=== PATIENT | male | born 1945 | race Caucasian/White ===

== ENCOUNTER 2017-01-05 09:19 | Observation (INO) | payer BC, MEDICARE ==
[2017-01-05] MEDS ORDERED: PANTOPRAZOLE 40 MG/10 ML VIAL IVP STA (09:30)
[2017-01-05] MEDS ORDERED: SODIUM CHLORIDE 0.9% 1,000 ML IV STA (09:30)
[2017-01-05 10:14] LABS: CH 46.1; CHCM 36.3; HCT 37.8 % (39.0-53.0); HDW 3.51; HGB 13.4 gm/dL (13.0-17.5); MCHC 35.5 g/dL (31.0-37.0); MCV 127.9 fL (80.0-100.0); Macrocytosis Marked; Mean Platelet Volume 8.2; Poikilocytosis Slight; RBC 2.96 m/uL (4.30-5.90); RDW 13.5 % (11.5-15.5); WBC 3.6 k/uL (3.8-10.6)
[2017-01-05 10:17] LABS: MCH 45.4 pg (25.0-35.0)
[2017-01-05 10:20] LABS: ALT 37 U/L (21-72); AST 22 U/L (17-59); Alkaline Phosphatase 72 U/L (38-126); Anion Gap 10 mmol/L; Blood Urea Nitrogen 16 mg/dL (9-20); Calcium 8.8 mg/dL (8.4-10.2); Carbon Dioxide 27 mmol/L (22-30); Chloride 105 mmol/L (98-107); Glucose 88 mg/dL (74-99); Magnesium 2.2 mg/dL (1.6-2.3); Non-African American GFR(MDRD) >60 (>60 ml/min/1.73 sqM); Potassium 4.3 mmol/L (3.5-5.1); Sodium 142 mmol/L (137-145); Total Protein 6.8 g/dL (6.3-8.2)
[2017-01-05 10:22] LABS: INR 1.1 (<1.2); Partial Thromboplastin Time 25.2 sec (22.0-30.0)
[2017-01-05 10:35] LABS: Add Differential Manual Differential
[2017-01-05 10:36] LABS: Nucleated Red Blood Cells 0 /100 WBC (0-0); Total Cells Counted 100
[2017-01-05 10:37] LABS: Creatine Kinase 160 U/L (55-170)
[2017-01-05 10:50] LABS: Creatine Kinase MB 1.1 ng/mL (0.0-2.4); Troponin I <0.012 ng/mL (0.000-0.034)
--- NOTE | 2017-01-05 11:07 | ED ---
General Adult HPI - General Chief complaint: GI Bleed Stated complaint: bloody stools Time Seen by Provider: 01/05/17 09:29 Source: patient, RN notes reviewed, old records reviewed Mode of arrival: ambulatory Limitations: no limitations - History of Present Illness Initial comments: This is a 71-year-old male the ER for evaluation. This patient presents today for evaluation regards to bloody stools. Patient does have history of GI issues. Patient is recently had colonoscopy by Dr. Lobato and was told that he does have areas of bleeding and to return to the hospital if bleeding worsens. Patient has no bowel pain does not feel lightheaded or dizzy, is not on any blood thinners, and did take an aspirin which she has stopped. - Related Data Home Medications Medication Instructions Recorded Confirmed Aspirin 325 mg PO DAILY 12/17/14 01/05/17 Atorvastatin [Lipitor] 40 mg PO HS 12/17/14 01/05/17 Hydroxyurea [Hydrea] 500 mg PO BID 12/17/14 01/05/17 Ramipril 10 mg PO DAILY 12/17/14 01/05/17 Spironolactone [Aldactone] 25 mg PO DAILY 12/07/15 01/05/17 Carvedilol [Coreg*] 12.5 mg PO BID 01/05/17 01/05/17 Allergies Allergy/AdvReac Type Severity Reaction Status Date / Time No Known Allergies Allergy Verified 01/05/17 09:47 Review of Systems ROS Statement: Those systems with pertinent positive or pertinent negative responses have been documented in the HPI. ROS Other: All systems not noted in ROS Statement are negative. Past Medical History Past Medical History: Cancer, Myocardial Infarction ([place]) Additional Past Medical History / Comment(s): 2 stents prostate ca polycythemia History of Any Multi-Drug Resistant Organisms: None Reported Past Surgical History: Heart Catheterization, Heart Catheterization With Stent, Prostate Surgery Past Psychological History: No Psychological Hx Reported Smoking Status: Former smoker Past Alcohol Use History: None Reported Past Drug Use History: None Reported General Exam Limitations: no limitations General appearance: alert, in no apparent distress Head exam: Present: atraumatic, normocephalic, normal inspection Eye exam: Present: normal appearance, PERRL, EOMI. Absent: scleral icterus, conjunctival injection, periorbital swelling ENT exam: Present: normal exam, mucous membranes moist Neck exam: Present: normal inspection. Absent: tenderness, meningismus, lymphadenopathy Respiratory exam: Present: normal lung sounds bilaterally. Absent: respiratory distress, wheezes, rales, rhonchi, stridor Cardiovascular Exam: Present: regular rate, normal rhythm, normal heart sounds. Absent: systolic murmur, diastolic murmur, rubs, gallop, clicks GI/Abdominal exam: Present: soft, normal bowel sounds. Absent: distended, tenderness, guarding, rebound, rigid Extremities exam: Present: normal inspection, full ROM, normal capillary refill. Absent: tenderness, pedal edema, joint swelling, calf tenderness Back exam: Present: normal inspection Neurological exam: Present: alert, oriented X3, CN II-XII intact Psychiatric exam: Present: normal affect, normal mood Skin exam: Present: warm, dry, intact, normal color. Absent: rash Course Vital Signs 01/05/17 09:23 Temperature 98.1 F Pulse Rate 74 Respiratory 20 Rate Blood Pressure 132/77 O2 Sat by Pulse 98 Oximetry - Reevaluation(s) Reevaluation #1: 01/05/17 11:06 Medical record is reviewed Reevaluation #2: 01/05/17 11:06 Spoke with GI regarding patient, they are aware Medical Decision Making - Medical Decision Making 71 male to the ER for evaluation GI bleed, increased GI bleeding since recent colonoscopy. No significant symptoms know how low blood pressure patient will be admitted for GI evaluation and treatment - Lab Data Result diagrams: 01/05/17 09:50 01/05/17 09:50 Lab Results 01/05/17 01/05/17 01/05/17 Range/Units 09:50 09:50 09:50 WBC 3.6 L (3.8-10.6) k/uL RBC 2.96 L (4.30-5.90) m/uL Hgb 13.4 (13.0-17.5) gm/dL Hct 37.8 L (39.0-53.0) % MCV 127.9 H (80.0-100.0) fL MCH 45.4 H (25.0-35.0) pg MCHC 35.5 (31.0-37.0) g/dL RDW 13.5 (11.5-15.5) % Plt Count 181 (150-450) k/uL Neutrophils % (Manual) 96 % Lymphocytes % (Manual) 3 % Monocytes % (Manual) 1 % Neutrophils # (Manual) 3.46 (1.3-7.7) k/uL Lymphocytes # (Manual) 0.11 L (1.0-4.8) k/uL Monocytes # (Manual) 0.04 (0-1.0) k/uL Nucleated RBCs 0 (0-0) /100 WBC Poikilocytosis Slight Anisocytosis (manual) Present Macrocytosis Marked PT (9.0-12.0) sec INR (<1.2) APTT (22.0-30.0) sec Sodium 142 (137-145) mmol/L Potassium 4.3 (3.5-5.1) mmol/L Chloride 105 (98-107) mmol/L Carbon Dioxide 27 (22-30) mmol/L Anion Gap 10 mmol/L BUN 16 (9-20) mg/dL Creatinine 0.99 (0.66-1.25) mg/dL Est GFR (MDRD) Af Amer >60 (>60 ml/min/1.73 sqM) Est GFR (MDRD) Non-Af >60 (>60 ml/min/1.73 sqM) Glucose 88 (74-99) mg/dL Calcium 8.8 (8.4-10.2) mg/dL Magnesium 2.2 (1.6-2.3) mg/dL Total Bilirubin 1.0 (0.2-1.3) mg/dL AST 22 (17-59) U/L ALT 37 (21-72) U/L Alkaline Phosphatase 72 (38-126) U/L Total Creatine Kinase 160 (55-170) U/L CK-MB (CK-2) 1.1 (0.0-2.4) ng/mL CK-MB (CK-2) Rel Index 0.7 Troponin I <0.012 (0.000-0.034) ng/mL Total Protein 6.8 (6.3-8.2) g/dL Albumin 4.1 (3.5-5.0) g/dL Lipase 56 (23-300) U/L Blood Type Blood Type Recheck Antibody Screen Spec Expiration Date 01/05/17 01/05/17 Range/Units 09:50 09:50 WBC (3.8-10.6) k/uL RBC (4.30-5.90) m/uL Hgb (13.0-17.5) gm/dL Hct (39.0-53.0) % MCV (80.0-100.0) fL MCH (25.0-35.0) pg MCHC (31.0-37.0) g/dL RDW (11.5-15.5) % Plt Count (150-450) k/uL Neutrophils % (Manual) % Lymphocytes % (Manual) % Monocytes % (Manual) % Neutrophils # (Manual) (1.3-7.7) k/uL Lymphocytes # (Manual) (1.0-4.8) k/uL Monocytes # (Manual) (0-1.0) k/uL Nucleated RBCs (0-0) /100 WBC Poikilocytosis Anisocytosis (manual) Macrocytosis PT 11.0 (9.0-12.0) sec INR 1.1 (<1.2) APTT 25.2 (22.0-30.0) sec Sodium (137-145) mmol/L Potassium (3.5-5.1) mmol/L Chloride (98-107) mmol/L Carbon Dioxide (22-30) mmol/L Anion Gap mmol/L BUN (9-20) mg/dL Creatinine (0.66-1.25) mg/dL Est GFR (MDRD) Af Amer (>60 ml/min/1.73 sqM) Est GFR (MDRD) Non-Af (>60 ml/min/1.73 sqM) Glucose (74-99) mg/dL Calcium (8.4-10.2) mg/dL Magnesium (1.6-2.3) mg/dL Total Bilirubin (0.2-1.3) mg/dL AST (17-59) U/L ALT (21-72) U/L Alkaline Phosphatase (38-126) U/L Total Creatine Kinase (55-170) U/L CK-MB (CK-2) (0.0-2.4) ng/mL CK-MB (CK-2) Rel Index Troponin I (0.000-0.034) ng/mL Total Protein (6.3-8.2) g/dL Albumin (3.5-5.0) g/dL Lipase (23-300) U/L Blood Type A Positive Blood Type Recheck CABO Indicated Antibody Screen NEGATIVE Spec Expiration Date 01/08/20172349 Disposition Clinical Impression: Gastrointestinal hemorrhage Disposition: ADMITTED IP TO THIS HOSP Condition: Fair Instructions: Gastrointestinal Bleeding (ED) Referrals: Bijan Long MD [Primary Care Provider] - 1-2 days
[2017-01-05] MEDS ORDERED: SODIUM CHLORIDE 0.9% 1,000 ML IV ONE (11:37)
[2017-01-05 14:32] VITALS: RESP 18
[2017-01-05] MEDS: CARVEDILOL 3.125 MG TAB PO SCH (16:59)
[2017-01-05] MEDS: HYDROXYUREA 500 MG CAP PO SCH (20:06)
[2017-01-05] MEDS ORDERED: ATORVASTATIN 40 MG TAB PO SCH (21:00)
[2017-01-06] MEDS ORDERED: SODIUM CHLORIDE 0.9% 1,000 ML IV SCH (07:00)
[2017-01-06] MEDS: HYDROXYUREA 500 MG CAP PO SCH (08:06)
[2017-01-06] MEDS: CARVEDILOL 3.125 MG TAB PO SCH (08:06)
[2017-01-06 08:20] VITALS: BP 109/64; PULSE 79; TEMP 97.7
[2017-01-06] MEDS ORDERED: SPIRONOLACTONE 25 MG TAB PO SCH (09:00)
[2017-01-06] MEDS ORDERED: LISINOPRIL 20 MG TAB PO SCH (09:00)
--- NOTE | 2017-01-06 09:12 | P.CONS ---
History of Present Illness - Reason for Consult Consult date: 01/06/17 rectal bleeding Requesting physician: Bijan Long - History of Present Illness 71-year-old gentleman with a history of polycythemia, prostate carcinoma requiring radiation 2 years ago presents with rectal bleeding. Patient underwent colonoscopy screening December [address] Lobato at [facility] with biopsies consistent with radiation proctitis; colonoscopy report not available at time of dictation. Post-colonoscopy patient experienced no bleeding until yesterday when he passed 3 bright red bowel movements with minimal abdominal discomfort. Denies shortness of breath chest pain fever chills hematemesis or melena. No NSAIDs aspirin or antiplatelet medications. No alcoholism. Hemoglobin 13.4. Platelet 181. INR 1.1. BUN 16. Last bloody bowel movement yesterday morning around 8 AM. Presently resting comfortably. Denies abdominal pain. Review of Systems Constitutional: Denies fever, chills, sweats, weight gain, or loss. HEENT: Negative for migraines, blurred vision or loss, earaches, drainage, tinnitus, oral mucosal lesions, dysphagia, or odynophagia. Cardiac: Negative for chest pain, arrhythmias, or palpitation. Respiratory: Negative for shortness of breath, hemoptysis, cough, or sputum production. Gastrointestinal: See HPI for pertinent findings. Genitourinary: Prostate carcinoma with radiation. Negative for hematuria, urgency, frequency, polyuria, dysuria, or penile discharge. Musculoskeletal: Negative for muscle aches, swelling, arthritis, and arthralgias. Neurologic: Negative for stroke or TIA. Endocrine: Negative for thyroid problems. Hematologic: Polycythemia. Skin: Negative for rash or itching. Psychiatric: Negative history for depression and anxiety All systems: negative (See HPI) Past Medical History Past Medical History: Cancer, Hyperlipidemia, Hypertension, Myocardial Infarction ([place]), Pneumonia, Skin Disorder Additional Past Medical History / Comment(s): Prostate cancer treated with 42 external radiation tx about 2 yrs ago-was told there was some damage to the rectal area r/t radiation tx, polycythemia, rosacia Last Myocardial Infarction Date:: 2008 History of Any Multi-Drug Resistant Organisms: None Reported Past Surgical History: Heart Catheterization, Heart Catheterization With Stent, Prostate Surgery Additional Past Surgical History / Comment(s): 12/07/16 Colonoscopy Past Anesthesia/Blood Transfusion Reactions: No Reported Reaction Date of Last Stent Placement:: 2008 Smoking Status: Former smoker - Past Family History Mother Family Medical History: Coronary Artery Disease (CAD), Myocardial Infarction ([place] ) Additional Family Medical History / Comment(s): Mother of a SD at the age of 57yrs Father Family Medical History: Coronary Artery Disease (CAD), Myocardial Infarction ([place] ) Additional Family Medical History / Comment(s): Father of a SD in his 70's. Medications and Allergies Home Medications Medication Instructions Recorded Confirmed Type Aspirin 325 mg PO DAILY 12/17/14 01/05/17 History Atorvastatin [Lipitor] 40 mg PO HS 12/17/14 01/05/17 History Hydroxyurea [Hydrea] 500 mg PO BID 12/17/14 01/05/17 History Ramipril 10 mg PO DAILY 12/17/14 01/05/17 History Spironolactone [Aldactone] 25 mg PO DAILY 12/07/15 01/05/17 History Carvedilol [Coreg*] 3.125 mg PO BID 01/05/17 01/05/17 History Allergies Allergy/AdvReac Type Severity Reaction Status Date / Time No Known Allergies Allergy Verified 01/05/17 09:47 Physical Exam Vitals: Vital Signs Temp Pulse Pulse Resp BP BP Pulse Ox 01/06/17 08:28 18 01/06/17 08:19 97.7 F 79 18 109/64 01/05/17 23:00 97.3 F L 67 18 98/65 98 01/05/17 14:31 96.9 F L 65 18 125/73 98 01/05/17 12:36 97.2 F L 88 17 135/79 100 01/05/17 11:30 60 16 109/69 97 01/05/17 09:23 98.1 F 74 20 132/77 98 Intake and Output 01/05/17 01/06/17 01/06/17 22:59 06:59 14:59 Other: Voiding Method Toilet # Voids 1 1 General appearance: The patient is alert, oriented, in no acute distress. HET: Head is normocephalic and atraumatic. Pupils are equal and reactive. Oropharynx is clear without lesions. Neck: Supple without lymphadenopathy. Trachea midline. Heart: S1 S2. Regular rate and rhythm. Lungs: No crackles or wheezes are heard. Abdomen: Soft, nontender, nondistended with bowel sounds. No peritoneal signs. No palpable organomegaly or masses. Extremities: Normal skin color and turgor. No cyanosis, rash, ulceration, clubbing, or edema. Radial and pedal pulses are 2/4 bilaterally. Neurological: No focal deficits. Strength and sensation are grossly intact. Results CBC & Chem 7: 01/05/17 09:50 01/05/17 09:50 Labs: Abnormal Lab Results - Last 24 Hours (Table) 01/05/17 Range/Units 09:50 WBC 3.6 L (3.8-10.6) k/uL RBC 2.96 L (4.30-5.90) m/uL Hct 37.8 L (39.0-53.0) % MCV 127.9 H (80.0-100.0) fL MCH 45.4 H (25.0-35.0) pg Lymphocytes # (Manual) 0.11 L (1.0-4.8) k/uL Assessment and Plan (1) Rectal bleeding Narrative/Plan: 71-year-old gentleman presents with acute rectal bleeding 3 episode with a history of prostate carcinoma requiring radiation with colonoscopy screening one month ago with biopsies consistent with radiation proctitis. Rectal bleeding most likely result of radiation proctitis. Status: Acute (2) Radiation proctitis Status: Acute Plan: 1. No further episodes of rectal bleeding more than 24 hours. Patient resting comfortably. Recommend discharge today with scheduling of flexible sigmoidoscopy possible APC tomorrow with Dr. Burger at [facility]. Patient is agreeable with this plan of care. Prescriptions/bowel prep provided. The highway painter has discussed the risks, benefits and alternative therapies for the above-mentioned procedure and for both sedation/analgesia as well as necessary blood product administration, if indicated, as they pertain to this patient. The patient has indicated understanding and acceptance of the risks and procedures discussed. Thank you for this kind referral and the opportunity to participate in the care of your patient. This consultation was discussed with Dr. Burger. The impression and plan of care have been directed as dictated.
--- NOTE | 2017-01-06 09:42 | HP ---
HISTORY AND PHYSICAL DATE OF ADMISSION: 01/05/17. ATTENDING PHYSICIAN: Dr. Che Long. CHIEF COMPLAINT: Rectal bleeding. HISTORY OF PRESENT ILLNESS: This is a 71-year-old gentleman who last Wednesday had an episode of lower GI bleeding. It was fresh blood. The patient had actually been scheduled for a routine screening colonoscopy on 12/28/16. He did undergo a colonoscopy as outpatient by Dr. Lobato. He has noted to have evidence of proctitis. He has had previous radiation therapy for carcinoma of the prostate and this was felt to be more of radiation proctitis. The patient did not have any particular treatment done for that because of unavailability of the facility. The patient presents to the emergency room with increased bleeding today. He got up in the morning, had a good bowel movement at 7 o'clock. It was normal. Subsequent then about half hour later, he felt the urgency to defecate again. At this time, he had a significant amount of bleeding. No stool. Denied any abdominal pain. Denies any other symptoms of fever, chills, nausea, vomiting, and dizziness, palpitations, chest pain. The patient presented in the emergency room in view of this. He is evaluated, hemodynamically stable, in no distress. He is admitted for observation. His hemoglobin is stable. The patient on digital exam by me had no stool in his rectum. There was no blood. The patient is to be evaluated by the endoscopist/home stager Dr. Lobato later today. PAST MEDICAL HISTORY: Primarily significant for history of carcinoma of the prostate for which he had radiation therapy. History of polycythemia rubra vera on medical therapy for the same. History of coronary artery disease with a previous stent in 2011. History of hyperlipidemia, on medical therapy. PAST SURGICAL HISTORY: Significant for prostate biopsy. No other emergent surgeries. PERSONAL HISTORY: Ex-smoker. Alcohol none. ALLERGIES: None reported. MEDICATIONS: 1. Coreg 6.25 mg b.i.d. 2. Atorvastatin 40 mg daily. 3. Aspirin 325 mg daily., which is on hold. 4. Spironolactone 25 mg 1 daily. 5. Omeprazole 10 mg daily. 6. Hydrea 500 mg b.i.d. SOCIAL HISTORY: Patient is , lives with his spouse. FAMILY MEDICAL HISTORY: Father at age of 72, coronary artery disease. Mother at age 52 of coronary artery disease. The patient has 5 brothers, 1 has a history of alcohol dependence. A sister . She has a history of carcinoma of breast. Two other sisters in adequate health. The patient has 1 daughter and 1 son in good health. REVIEW OF SYSTEMS: Neuro: Denies any headaches, dizziness. No double vision, blurred vision. No symptoms of TIAs, syncope, or seizures. Psych: No anxiety, depression. Cardiac: No chest pain, angina, palpitations. Respiratory: Denies shortness of breath, cough, hemoptysis. GI: No nausea, vomiting, abdominal pain, diarrhea, constipation. Present symptoms of rectal bleeding. : No symptoms of dysuria, hematuria, urgency, or frequency. EXTREMITIES: No pain or edema. Constitutional: No fever, chills. Hematological: Present GI bleeding. Otherwise, no bleeding disorder. : No symptoms of dysuria, hematuria, urgency, frequency. EXTREMITIES: No pain or edema. Constitutional: No fever, chills. Hematological: History of polycythemia rubra vera, on medical therapy. Well-controlled. PHYSICAL EXAMINATION: Pleasant gentleman, at present in no distress. Vital signs reveals temperature 96.9, pulse 65, respirations 18, blood pressure 125/73, pulse ox 98% on room air. HEENT: Normocephalic. NECK: Supple. No JVD. CHEST: Clear. The patient pupils are reactive. Conjunctivae are pink. Sclerae are nonicteric. Nostrils clear. Oral cavity is moist. Neck is no JVD. Carotid bruits, or thyromegaly. CHEST: Clear to auscultation, percussion. Cardiac normal S1, S2 with no gallops, murmurs, rubs. ABDOMEN: Soft, bowel sounds normal. No organomegaly. No abdominal bruits. Rectal examination reveals small prostate. Soft. The rectum with no tenderness. No blood in the stool and no blood in the rectum. EXTREMITIES: No edema. Good pulses both upper and lower extremities. Neurologic is awake, alert, oriented times with well coordinated movements. LABORATORY ASSESSMENT: CBC which revealed hemoglobin 13.4, white count of 3600, MCV 127.9, platelets 181,000. PT, PTT, and normal. Chemistries all normal. ASSESSMENT: 1. Radiation proctitis with lower gastrointestinal bleeding. 2. History of carcinoma of the prostate, post radiation therapy. 3. History of polycythemia rubra vera. 4. History of coronary artery disease, stable. PLAN: The patient is admitted to the hospital for observation. The patient will be seen by Gastroenterology for possible further treatment. Patient condition discussed with the patient. Prognosis guarded. MMLGL / CHRISTON: [id number] /
[2017-01-06 10:23] LABS: CH 44.5; CHCM 34.2; HDW 3.41; HGB 12.9 gm/dL (13.0-17.5); MCHC 34.9 g/dL (31.0-37.0); Macrocytosis Marked; Mean Platelet Volume 8.2; Poikilocytosis Slight; RBC 2.83 m/uL (4.30-5.90); RDW 13.5 % (11.5-15.5); WBC 3.8 k/uL (3.8-10.6)
[2017-01-06 10:31] LABS: MCH 45.7 pg (25.0-35.0)
[2017-01-06 10:34] LABS: MCV 130.9 fL (80.0-100.0)
--- NOTE | 2017-01-06 23:45 | DS ---
DISCHARGE SUMMARY DATE OF ADMISSION: 01/05/2017 DATE OF DISCHARGE: 01/06/2017 CHIEF COMPLAINT: Rectal bleeding. HISTORY OF PRESENT ILLNESS: This gentleman, 71 years of age, was admitted to the hospital for lower GI bleeding. He had significant blood loss at home. The patient's hemoglobin was 13.4 at the time of admission, then it was down to 12.9. White count was 3800, platelets 177. The patient does have a history of polycythemia rubra vera. He also has had a history of carcinoma of the prostate, for which he had radiation. The patient underwent routine colonoscopy 3 days ago; was noted to have evidence of proctitis, felt to be radiation proctitis. The patient was recommended further intervention. The patient in view of this bleeding presented to the emergency room. The ER physician contacted the GI physician covering the hospital emergency room. He advised that the patient be admitted to the hospital and that he would see the patient in the hospital. The patient at this time of discharge in the morning had not been seen by him. The physician's nurse practitioner was contacted, who discussed the case with him and it was elected that the patient would be discharged home, to come back in the morning for sigmoidoscopic evaluation, as the physician did not have time to do this procedure. The patient has had no further episodes of bleeding. He has been on clear liquids until yesterday and has not had anything to eat since midnight. The patient in view of above will be discharged home. The patient is being scheduled for flexible sigmoidoscopy and possible argon laser therapy/APC. The patient will be discharged home to continue his medications except for the aspirin. FINAL DIAGNOSES: 1. Lower gastrointestinal bleeding secondary to radiation proctitis. 2. History of radiation therapy for carcinoma of the prostate. 3. History of polycythemia rubra vera. 4. History of stable coronary artery disease. 5. Mild anemia secondary to acute blood loss. Patient to follow up with Dr. Long as an outpatient. MMODL / IJN: [id number] /
== END 2017-01-06 10:35 | disposition home or self-care (01) ==
LOC: EC 09:19 → 4MS4W 11:37
PROVIDERS: ADMIT Internal Medicine; ATTEND Internal Medicine
DX: K62.7 Radiation proctitis (principal); Z92.3 Personal history of irradiation; Z85.46 Personal history of malignant neoplasm of prostate; D45 Polycythemia vera; I25.10 Atherosclerotic heart disease of native coronary artery without angina pectoris; D62 Acute posthemorrhagic anemia; Z79.82 Long term (current) use of aspirin; Z79.899 Other long term (current) drug therapy; I25.2 Old myocardial infarction; Z87.891 Personal history of nicotine dependence; Z95.5 Presence of coronary angioplasty implant and graft; E78.5 Hyperlipidemia, unspecified; I10 Essential (primary) hypertension; L71.9 Rosacea, unspecified
CPT/HCPCS: 99285; 96374; 96361 ×6; 36415; 86900; 86901; 80053; 82550; 82553; 83690; 83735; 84484; 85025; 85027; 85610; 85730; 86850; G0378 ×2; S0176 ×2; C9113

== ENCOUNTER 2017-01-07 12:50 | Day surgery (SDC) | payer BC ==
[2017-01-06 13:03] VITALS: BMI 25.7
[2017-01-07 13:02] VITALS: RESP 18; TEMP 97.4
[2017-01-07] MEDS ORDERED: LACTATED RINGERS 1,000 ML IV ONE (13:03)
[2017-01-07] MEDS ORDERED: LIDOCAINE 1% 20 ML VIAL (10MG/ML) FOR IV START INTRADERMA ONE (13:04)
[2017-01-07] MEDS ORDERED: PROPOFOL 10 MG/ML 20 ML VIAL IV ONE (13:43)
[2017-01-07 14:44] VITALS: BP 125/77; PULSE 69
--- NOTE | 2017-01-07 14:48 | P.PCN ---
Date of Procedure: 01/07/17 Procedure(s) Performed: Procedure: Flexible sigmoidoscopy and argon plasma with argon plasma coagulation. Preoperative diagnosis: Rectal bleeding and history of radiation proctitis. Postoperative diagnosis: Bleeding ectatic vessels in the rectum treated with argon plasma coagulation with good control. Preparation: HalfLytely prep. Sedation: Was provided by anesthesia. Brief clinical history: The patient is a 71-year-old male with a history of polycythemia, prostate carcinoma requiring radiation 2 years ago hospitalized overnight this week when he presented with rectal bleeding. Patient underwent colonoscopy screening December [address] Lobato at [facility] with biopsies consistent with radiation proctitis. Post-colonoscopy patient experienced no bleeding until this week when he passed 3 bright red bowel movements with minimal abdominal discomfort. Denied shortness of breath, chest pain, fever, chills, hematemesis or melena. No NSAIDs aspirin or antiplatelet medications. No alcoholism. Hemoglobin 13.4. Platelet 181. INR 1.1. BUN 16. Last bloody bowel movement the morning of the day of admission to the hospital this week. Did not have any further bleeding during his preparation for this exam overnight at home. Procedure: With the patient on his left lateral decubitus position and after informed consent and adequate sedation, the perianal area was inspected and it did not show any fissures or fistulas. There were no masses felt on digital rectal examination, however, there was fresh blood noted on the gloved examining finger. The Olympus CFQ 160L video colonoscope was then inserted in the rectum in the usual fashion and advanced to the mid to proximal sigmoid. There was active bleeding noted in the rectum secondary to ectatic and telangiectatic vessels consistent with radiation proctitis. No abnormalities or bleeding was noted proximal to the rectum. I therefore proceeded to use the argon plasma at 40 W power and a forward firing catheter and treated the areas of bleeding thoroughly with good control of the bleeding.. The patient tolerated the procedure well. Plan: I summarized the findings to the patient. I anticipate control of the bleeding with this treatment today. Certainly, if he has recurrence of the bleeding, I would consider another session of coagulation until complete control and of the problem. He will follow up with you as planned and I will keep you updated on his progress.
== END 2017-01-07 15:13 | disposition home or self-care (01) ==
LOC: ORWHC2ENDO 12:50
DX: K62.5 Hemorrhage of anus and rectum (principal); I25.10 Atherosclerotic heart disease of native coronary artery without angina pectoris; D75.1 Secondary polycythemia; I10 Essential (primary) hypertension; E78.5 Hyperlipidemia, unspecified; Z85.46 Personal history of malignant neoplasm of prostate; I25.2 Old myocardial infarction; Z79.82 Long term (current) use of aspirin; Z79.899 Other long term (current) drug therapy
CPT/HCPCS: 45334; J2704

== ENCOUNTER 2018-03-08 06:50 | Day surgery (SDC) | payer BC, MEDICARE ==
[2018-03-03 13:20] VITALS: BMI 25.8
[~2018-03-08 06:50] MED LIST: ALPRAZolam 0.25 MG TAB PO PRN; ALPRAZolam 0.5 MG TAB PO PRN; NITROGLYCERIN SL TABS 0.4 MG TAB SUBLINGUAL PRN; SODIUM CHLORIDE 0.9% 1,000 ML in EMPTY BAG 1 BAG IV ONE
[2018-03-08] MEDS ORDERED: ATORVASTATIN 80 MG TAB PO ONE (07:00)
[2018-03-08] MEDS ORDERED: ASPIRIN 325 MG TAB PO ONE (07:00)
[2018-03-08 07:33] VITALS: RESP 16; TEMP 98
[2018-03-08 07:43] LABS: Basophils # (A) 0.1 k/uL (0-0.2); Basophils % (A) 1 %; Eosinophils # (A) 0.1 k/uL (0-0.7); Eosinophils % (A) 2 %; HCT 41.8 % (39.0-53.0); HGB 13.7 gm/dL (13.0-17.5); Hypochromasia Slight; Lymphocytes # (A) 0.6 k/uL (1.0-4.8); Lymphocytes % (A) 8 %; MCH 34.3 pg (25.0-35.0); MCHC 32.8 g/dL (31.0-37.0); MCV 104.8 fL (80.0-100.0); Macrocytosis Moderate; Mean Platelet Volume 8.3; Monocytes # (A) 0.3 k/uL (0-1.0); Monocytes % (A) 3 %; Neutrophils # (A) 6.7 k/uL (1.3-7.7); Neutrophils % (A) 86 %; Platelet Count 201 k/uL (150-450); Poikilocytosis Slight; RBC 3.99 m/uL (4.30-5.90); RDW 14.7 % (11.5-15.5); WBC 7.8 k/uL (3.8-10.6)
[2018-03-08] MEDS ORDERED: SODIUM CHLORIDE 0.9% 1,000 ML IV ONE (07:47)
[2018-03-08] MEDS ORDERED: LIDOCAINE 1% INJ 10MG/ML (20 ML MDV) ONE (09:04)
[2018-03-08] MEDS ORDERED: MIDAZOLAM 2 MG/2 ML VIAL ONE (09:04)
[2018-03-08] MEDS ORDERED: MIDAZOLAM 2 MG/2 ML VIAL IV ONE (09:08)
[2018-03-08] MEDS ORDERED: fentaNYL (PF) 50 MCG/ML 2 ML AMP ONE (09:13)
[2018-03-08] MEDS ORDERED: fentaNYL (PF) 50 MCG/ML 2 ML AMP IV ONE (09:14)
[2018-03-08] MEDS ORDERED: LIDOCAINE 1% INJ 10MG/ML (20 ML MDV) SQ ONE (09:14)
[2018-03-08] MEDS ORDERED: IOPAMIDOL-370 125ML BTL INJ ONE (09:27)
[2018-03-08] MEDS ORDERED: RX INFO: IV CONTRAST WAS GIVEN 1 EACH MISC MISCELLANE PRN (10:02)
--- NOTE | 2018-03-08 10:02 | P.CARDCATH ---
Date of Procedure: 03/08/18 Preoperative Diagnosis: Positive stress test and history of previous stent placement of the RCA and LAD. Postoperative Diagnosis: Patent stents in the RCA and LAD, stable intermediate disease in the distal RCA Procedure(s) Performed: Left heart catheterization without left ventriculography Description of Procedure: HISTORY: This is a 72-year-old gentleman with history of ischemic heart disease and previous stent placement of the left anterior descending and also right coronary artery. Recent stress test showed ischemia in the lateral wall. Patient is advised to have a cardiac catheterization for definitive diagnosis. CONSENT:I have discussed the risks, benefits and alternative therapies for the above-mentioned procedure and for both sedation/analgesia as well as necessary blood product administration, if indicated, as they pertain to this patient. The patient has indicated understanding and acceptance of the risks and procedures discussed. PROCEDURE: Patient was brought to the lab in a fasting state. Patient was given some IV sedation. The right groin is infiltrated with lidocaine and right femoral artery was entered using Seldinger technique. A 6-Bulgarian catheter was left in place and selective coronary arteriography and left ventriculography was performed. Patient tolerated the procedure well. Femoral angiogram was performed and Angio-Seal was applied for hemostasis. No immediate complications were noted and patient was transferred to [facility] in a stable condition Conscious Sedation: Versed 1mg Fentanyl 25 g Duration 16minutes HEMODYNAMICS: The aortic pressure is about 98/60. Left ventricular end- diastolic pressure is 8-12. There was no gradient across the aortic valve SELECTIVE CORONARY ARTERIOGRAPHY: LEFT MAIN: Normal length and a free of any significant occlusive disease. Mild distal plaque noted THE LEFT ANTERIOR DESCENDING CORONARY ARTERY:. This is a good caliber vessel with patent stent in the proximal and midportion. There are 2 diagonal branches arising from this portion of the LAD. The first diagonal has mild diffuse disease. Rest of the LAD is free of any significant occlusive disease THE LEFT CIRCUMFLEX AND IS CORONARY ARTERY:. This is a moderate caliber vessel giving rise to moderate caliber OM branch and PLV branches. The OM branch is mildly mild disease. Otherwise, no significant obstructive disease noted in the circumflex THE RIGHT CORONARY ARTERY:. This is a dominant vessel and ectatic. There is a stent in the midportion which is patent. The distal or. She hasn't mild to moderate disease with about 40-50% luminal narrowing. This is in between to ectatic areas. LEFT VENTRICULOGRAPHY: Performed FINAL IMPRESSION: Patent stents in the LAD and the right. Intermediate disease in the distal right, which is a and ectatic vessel PLAN: Continuation of medical therapy and risk factor modification PROGNOSIS:. Fair
[2018-03-08] MEDS ORDERED: SODIUM CHLORIDE 0.9% 1,000 ML IV SCH (10:15)
[2018-03-08 14:36] VITALS: BP 102/65
[2018-03-08 14:38] VITALS: PULSE 67
== END 2018-03-08 15:58 | disposition home or self-care (01) ==
LOC: CATHCVL 06:50
PROVIDERS: ATTEND Internal Medicine Cardiovascular Disease
DX: I25.10 Atherosclerotic heart disease of native coronary artery without angina pectoris (principal); Z95.5 Presence of coronary angioplasty implant and graft; R94.39 Abnormal result of other cardiovascular function study; E78.00 Pure hypercholesterolemia, unspecified; I10 Essential (primary) hypertension; E78.5 Hyperlipidemia, unspecified; I25.9 Chronic ischemic heart disease, unspecified; Z82.49 Family history of ischemic heart disease and other diseases of the circulatory system; Z79.82 Long term (current) use of aspirin; Z79.899 Other long term (current) drug therapy; Z72.0 Tobacco use
CPT/HCPCS: 93458; 85025; C1760; C1894; C1769; J2250; J2001; J3010; Q9967

== ENCOUNTER 2019-06-26 18:17 | Emergency (ER) | payer BC ==
[2019-06-26 18:21] VITALS: RESP 18
--- NOTE | 2019-06-26 18:48 | ED ---
Chest Pain HPI - General Chief Complaint: Chest Pain Stated Complaint: Abnormal EKG Time Seen by Provider: 06/26/19 18:36 Source: patient, RN notes reviewed, old records reviewed Mode of arrival: ambulatory Limitations: no limitations - History of Present Illness Initial Comments: This is a 73-year-old male DF for evaluation patient is safe for evaluation of chest pain history of angina history of stent. Patient last heart cath about 2 years ago. Otherwise no acute new symptoms. Patient has no recent travel history no sick contacts, no nausea vomiting or diarrhea no fevers. Patient states he did go to his primary care doctor for evaluation pain today the primary care doctor is new to him and sent him DF for evaluation MD Complaint: chest pain -: week(s) Onset: during rest Pain Location: left chest Pain Radiation: LUE Severity: moderate Severity scale (1-10): 4 Quality: tightness, aching Consistency: intermittent Improves With: nothing Worsens With: nothing Anginal Symptoms: nausea Other Symptoms: cough Treatments Prior to Arrival: none - Related Data Home Medications Medication Instructions Recorded Confirmed Atorvastatin [Lipitor] 40 mg PO HS 12/17/14 06/26/19 Hydroxyurea [Hydrea] 500 mg PO BID 12/17/14 06/26/19 Ramipril 10 mg PO DAILY 12/17/14 06/26/19 Spironolactone [Aldactone] 25 mg PO DAILY 12/07/15 06/26/19 Carvedilol [Coreg*] 3.125 mg PO BID 01/05/17 06/26/19 Doxycycline Hyclate 50 mg PO DAILY 06/26/19 06/26/19 Hydroxyurea [Hydrea] 500 mg PO TID 06/26/19 06/26/19 metroNIDAZOLE 0.75% CREAM 1 applic TOPICAL DAILY 06/26/19 06/26/19 [Metrocream] Previous Rx's Medication Instructions Recorded Nitroglycerin Sl Tabs [Nitrostat] 0.4 mg SUBLINGUAL Q5M PRN #25 tab 03/08/18 Allergies Allergy/AdvReac Type Severity Reaction Status Date / Time No Known Allergies Allergy Verified 06/26/19 18:21 Review of Systems ROS Statement: Those systems with pertinent positive or pertinent negative responses have been documented in the HPI. ROS Other: All systems not noted in ROS Statement are negative. EKG Findings - EKG Comments: EKG Findings:: EKG shows sinus 76, KS 136 and QRS 94, QTc 409 Past Medical History Past Medical History: Blood Disorder, Cancer, GI Bleed, Hyperlipidemia, Hypertension, Myocardial Infarction ([place]), Pneumonia, Skin Disorder Additional Past Medical History / Comment(s): SEE DR HERRERA'S H&P, Prostate cancer treated with 42 external radiation tx 2014-was told there was some damage to the rectal area r/t radiation tx, polycythemia, rosacia Last Myocardial Infarction Date:: 2008 History of Any Multi-Drug Resistant Organisms: None Reported Past Surgical History: Heart Catheterization, Heart Catheterization With Stent, Prostate Surgery Additional Past Surgical History / Comment(s): gi bleed cauterized, stent x2 Past Anesthesia/Blood Transfusion Reactions: No Reported Reaction Date of Last Stent Placement:: 2008 Past Psychological History: No Psychological Hx Reported Smoking Status: Former smoker Past Alcohol Use History: None Reported Past Drug Use History: None Reported - Past Family History Mother Family Medical History: Coronary Artery Disease (CAD), Myocardial Infarction ([place]) Additional Family Medical History / Comment(s): Mother of a IL at the age of 57yrs Father Family Medical History: Cancer, Coronary Artery Disease (CAD), Myocardial In farction ([place]) Additional Family Medical History / Comment(s): Father of a [place] in his 70's. Sister(s) Family Medical History: Cancer General Exam Limitations: no limitations General appearance: alert, in no apparent distress Head exam: Present: atraumatic, normocephalic, normal inspection Eye exam: Present: normal appearance, PERRL, EOMI. Absent: scleral icterus, conjunctival injection, periorbital swelling ENT exam: Present: normal exam, mucous membranes moist Neck exam: Present: normal inspection. Absent: tenderness, meningismus, lymphadenopathy Respiratory exam: Present: normal lung sounds bilaterally. Absent: respiratory distress, wheezes, rales, rhonchi, stridor Cardiovascular Exam: Present: regular rate, normal rhythm, normal heart sounds. Absent: systolic murmur, diastolic murmur, rubs, gallop, clicks GI/Abdominal exam: Present: soft, normal bowel sounds. Absent: distended, te nderness, guarding, rebound, rigid Extremities exam: Present: normal inspection, full ROM, normal capillary refill. Absent: tenderness, pedal edema, joint swelling, calf tenderness Back exam: Present: normal inspection Neurological exam: Present: alert, oriented X3, CN II-XII intact Psychiatric exam: Present: normal affect, normal mood Skin exam: Present: warm, dry, intact, normal color. Absent: rash Course Vital Signs 06/26/19 06/26/19 18:18 19:01 Temperature 97.6 F Pulse Rate 92 75 Respiratory 18 18 Rate Blood Pressure 127/81 120/70 O2 Sat by Pulse 97 97 Oximetry - Reevaluation(s) Reevaluation #1: 06/26/19 20:37 Medical records reviewed Reevaluation #2: 06/26/19 20:37 Patient denying pain symptoms here in the ER Reevaluation #3: 06/26/19 20:37 Patient informed us findings, questions answered, patient states he would not have come to the hospital to wasn't for being sent in by his primary care Chest Pain MDM - MDM 73 male DF with history of angina history of heart disease with stent, patient is presenting with chest pain today. Patient is having chest pain persistent here in the ER, chest pain is well-controlled patient states he'll follow-up as an outpatient would like to be discharged home Disposition Clinical Impression: Atypical chest pain, Chest pain Disposition: HOME SELF-CARE Condition: Good Instructions (If sedation given, give patient instructions): Chest Pain (ED) Is patient prescribed a controlled substance at d/c from ED?: No Referrals: Bijan Long MD [Primary Care Provider] - 1-2 days
[2019-06-26 19:01] LABS: Basophils # (A) 0.1 k/uL (0-0.2); Basophils % (A) 1 %; Eosinophils # (A) 0.1 k/uL (0-0.7); Eosinophils % (A) 2 %; HCT 36.2 % (39.0-53.0); HGB 11.5 gm/dL (13.0-17.5); Hypochromasia Slight; Lymphocytes # (A) 0.6 k/uL (1.0-4.8); Lymphocytes % (A) 12 %; MCH 32.4 pg (25.0-35.0); MCHC 31.7 g/dL (31.0-37.0); MCV 102.3 fL (80.0-100.0); Macrocytosis Slight; Monocytes # (A) 0.2 k/uL (0-1.0); Monocytes % (A) 4 %; Neutrophils # (A) 4.1 k/uL (1.3-7.7); Neutrophils % (A) 78 %; Platelet Count 151 k/uL (150-450); Poikilocytosis Slight; RBC 3.54 m/uL (4.30-5.90); RDW 15.7 % (11.5-15.5); WBC 5.2 k/uL (3.8-10.6)
[2019-06-26 19:11] LABS: INR 1.1 (<1.2); Prothrombin Time 11.5 sec (9.0-12.0)
[2019-06-26 19:12] LABS: ALT 16 U/L (4-49); AST 25 U/L (17-59); African American GFR (CKD) >90 (>60 ml/min/1.73 sqM); Albumin 4.1 g/dL (3.5-5.0); Alkaline Phosphatase 69 U/L (38-126); Anion Gap 10 mmol/L; Blood Urea Nitrogen 24 mg/dL (9-20); Calcium 9.4 mg/dL (8.4-10.2); Carbon Dioxide 24 mmol/L (22-30); Chloride 104 mmol/L (98-107); Glucose 112 mg/dL (74-99); Non-African American GFR(CKD) 82 (>60 ml/min/1.73 sqM); Sodium 138 mmol/L (137-145); Total Bilirubin 0.7 mg/dL (0.2-1.3); Total Protein 6.7 g/dL (6.3-8.2)
--- NOTE | 2019-06-26 19:42 | XR ---
EXAMINATION TYPE: XR chest 2V DATE OF EXAM: 06/26/2019 COMPARISON: NONE HISTORY: Chest pain TECHNIQUE: FINDINGS: Heart and mediastinum are normal. There are no hilar masses. There is no pleural effusion. There are chest leads. There is slight increased interstitial pulmonary density. IMPRESSION: Interstitial mild fibrotic changes are new compared to old exam. Normal heart.
--- NOTE | 2019-06-26 20:41 | ED ---
Medical Decision Making - Lab Data Result diagrams: 06/26/19 18:45 06/26/19 18:45 Lab Results 06/26/19 06/26/19 06/26/19 Range/Units 18:45 18:45 18:45 WBC 5.2 (3.8-10.6) k/uL RBC 3.54 L (4.30-5.90) m/uL Hgb 11.5 L (13.0-17.5) gm/dL Hct 36.2 L (39.0-53.0) % MCV 102.3 H (80.0-100.0) fL MCH 32.4 (25.0-35.0) pg MCHC 31.7 (31.0-37.0) g/dL RDW 15.7 H (11.5-15.5) % Plt Count 151 (150-450) k/uL Neutrophils % 78 % Lymphocytes % 12 % Monocytes % 4 % Eosinophils % 2 % Basophils % 1 % Neutrophils # 4.1 (1.3-7.7) k/uL Lymphocytes # 0.6 L (1.0-4.8) k/uL Monocytes # 0.2 (0-1.0) k/uL Eosinophils # 0.1 (0-0.7) k/uL Basophils # 0.1 (0-0.2) k/uL Hypochromasia Slight Poikilocytosis Slight Macrocytosis Slight PT 11.5 (9.0-12.0) sec INR 1.1 (<1.2) APTT 25.0 (22.0-30.0) sec Sodium 138 (137-145) mmol/L Potassium 4.0 (3.5-5.1) mmol/L Chloride 104 (98-107) mmol/L Carbon Dioxide 24 (22-30) mmol/L Anion Gap 10 mmol/L BUN 24 H (9-20) mg/dL Creatinine 0.94 (0.66-1.25) mg/dL Est GFR (CKD-EPI)AfAm >90 (>60 ml/min/1.73 sqM) Est GFR (CKD-EPI)NonAf 82 (>60 ml/min/1.73 sqM) Glucose 112 H (74-99) mg/dL Calcium 9.4 (8.4-10.2) mg/dL Magnesium 2.0 (1.6-2.3) mg/dL Total Bilirubin 0.7 (0.2-1.3) mg/dL AST 25 (17-59) U/L ALT 16 (4-49) U/L Alkaline Phosphatase 69 (38-126) U/L Troponin I (0.000-0.034) ng/mL NT-Pro-B Natriuret Pep pg/mL Total Protein 6.7 (6.3-8.2) g/dL Albumin 4.1 (3.5-5.0) g/dL Lipase 48 (23-300) U/L 06/26/19 06/26/19 Range/Units 18:45 18:45 WBC (3.8-10.6) k/uL RBC (4.30-5.90) m/uL Hgb (13.0-17.5) gm/dL Hct (39.0-53.0) % MCV (80.0-100.0) fL MCH (25.0-35.0) pg MCHC (31.0-37.0) g/dL RDW (11.5-15.5) % Plt Count (150-450) k/uL Neutrophils % % Lymphocytes % % Monocytes % % Eosinophils % % Basophils % % Neutrophils # (1.3-7.7) k/uL Lymphocytes # (1.0-4.8) k/uL Monocytes # (0-1.0) k/uL Eosinophils # (0-0.7) k/uL Basophils # (0-0.2) k/uL Hypochromasia Poikilocytosis Macrocytosis PT (9.0-12.0) sec INR (<1.2) APTT (22.0-30.0) sec Sodium (137-145) mmol/L Potassium (3.5-5.1) mmol/L Chloride (98-107) mmol/L Carbon Dioxide (22-30) mmol/L Anion Gap mmol/L BUN (9-20) mg/dL Creatinine (0.66-1.25) mg/dL Est GFR (CKD-EPI)AfAm (>60 ml/min/1.73 sqM) Est GFR (CKD-EPI)NonAf (>60 ml/min/1.73 sqM) Glucose (74-99) mg/dL Calcium (8.4-10.2) mg/dL Magnesium (1.6-2.3) mg/dL Total Bilirubin (0.2-1.3) mg/dL AST (17-59) U/L ALT (4-49) U/L Alkaline Phosphatase (38-126) U/L Troponin I <0.012 (0.000-0.034) ng/mL NT-Pro-B Natriuret Pep 57 pg/mL Total Protein (6.3-8.2) g/dL Albumin (3.5-5.0) g/dL Lipase (23-300) U/L Disposition Clinical Impression: Atypical chest pain, Chest pain Disposition: HOME SELF-CARE Condition: Good Instructions (If sedation given, give patient instructions): Chest Pain (ED) Is patient prescribed a controlled substance at d/c from ED?: No Referrals: Emerson Senior MD [STAFF PHYSICIAN] - 1-2 days
[2019-06-26 20:42] VITALS: BP 116/69; PULSE 71; TEMP 98.2
== END 2019-06-26 20:45 | disposition home or self-care (01) ==
LOC: EC 18:17
DX: R07.89 Other chest pain (principal); R11.0 Nausea; R05 Cough; I10 Essential (primary) hypertension; I25.2 Old myocardial infarction; E78.5 Hyperlipidemia, unspecified; Z79.899 Other long term (current) drug therapy; Z79.02 Long term (current) use of antithrombotics/antiplatelets; Z87.891 Personal history of nicotine dependence; Z95.5 Presence of coronary angioplasty implant and graft; Z85.46 Personal history of malignant neoplasm of prostate
CPT/HCPCS: 36415; 71046; 80053; 83690; 83735; 83880; 84484; 85025; 85610; 85730; 93005; 99285

== ENCOUNTER 2021-07-18 06:08 | Day surgery (SDC) | payer MEDICARE ==
[2021-07-16 10:43] VITALS: BMI 23.3
[2021-07-18] MEDS ORDERED: NITROGLYCERIN SL TABS 0.4 MG TAB SUBLINGUAL PRN (06:22)
[2021-07-18] MEDS ORDERED: ASPIRIN 325 MG TAB PO STA (06:22)
[2021-07-18] MEDS ORDERED: ATORVASTATIN 80 MG TAB PO STA (06:22)
[2021-07-18] MEDS ORDERED: ALPRAZolam 0.5 MG TAB PO PRN (06:22)
[2021-07-18] MEDS ORDERED: ALPRAZolam 0.25 MG TAB PO PRN (06:22)
[2021-07-18] MEDS ORDERED: SODIUM CHLORIDE 0.9% 1,000 ML IV ONE (06:34)
[2021-07-18 06:46] VITALS: RESP 16; TEMP 97.5
[2021-07-18] MEDS ORDERED: HEPARIN SODIUM,PORCINE 2,500 UNIT in SODIUM CHLORIDE 0.9% 250 ML IRRIGATION PRN (07:00)
[2021-07-18] MEDS ORDERED: HEPARIN SODIUM,PORCINE 10,000 UNIT in SODIUM CHLORIDE 0.9% 1,000 ML IRRIGATION PRN (07:00)
[2021-07-18] MEDS ORDERED: HEPARIN SODIUM 1,000 UN/ML (10ML VL) ONE (07:25)
[2021-07-18] MEDS ORDERED: LIDOCAINE 1% INJ 10MG/ML (20 ML MDV) ONE (07:25)
[2021-07-18] MEDS ORDERED: VERAPAMIL 2.5 MG/ML 2 ML AMP ONE (07:25)
[2021-07-18] MEDS ORDERED: fentaNYL (PF) 50 MCG/ML 2 ML AMP ONE (07:29)
[2021-07-18] MEDS ORDERED: MIDAZOLAM 2 MG/2 ML VIAL IVP ONE (07:50)
[2021-07-18] MEDS ORDERED: fentaNYL (PF) 50 MCG/ML 2 ML AMP IVP ONE (07:50)
[2021-07-18] MEDS: LIDOCAINE 1% INJ 10MG/ML (20 ML MDV) SQ ONE ×2 (07:53→07:59)
[2021-07-18] MEDS ORDERED: IOPAMIDOL-370 125ML BTL INJ ONE ×2 (08:08)
[2021-07-18] MEDS ORDERED: RX INFO: IV CONTRAST WAS GIVEN 1 EACH MISC MISCELLANE PRN (08:16)
[2021-07-18] MEDS ORDERED: SODIUM CHLORIDE 0.9% 1,000 ML IV SCH (08:30)
--- NOTE | 2021-07-18 08:30 | P.CARDCATH ---
Date of Procedure: 07/18/21 Preoperative Diagnosis: Chest pain and positive stress test Postoperative Diagnosis: Stable coronary artery disease with patent stents in the LAD and RCA Procedure(s) Performed: Left heart catheterization without left ventriculography Description of Procedure: HISTORY: This is a 75-year-old gentleman with history of ischemic heart disease with a previous stent placement of the mid LAD and distal RCA. Patient has been having symptoms of chest pain . Patient had a nuclear stress test which showed fixed defect along the inferior wall. Because of ongoing chest pains, patient is advised to have cardiac catheterization for definitive diagnosis CONSENT:I have discussed the risks, benefits and alternative therapies for the above-mentioned procedure and for both sedation/analgesia as well as necessary blood product administration, if indicated, as they pertain to this patient. The patient has indicated understanding and acceptance of the risks and procedures discussed. PROCEDURE: Patient was brought to the lab in a fasting state. Patient was given some IV sedation. Attempts were made to do a cardiac catheterization from right radial approach. Radial artery was entered, but the wire could not be advanced. The procedure was abandoned and Was performed in the right groin approach. The right groin is infiltrated with lidocaine and right femoral artery was entered using Seldinger technique. A 6-Czech catheter was left in place and selective coronary arteriography was performed. Left ventriculography was not performed Patient tolerated the procedure well. Femoral angiogram was performed and Angio-Seal was applied for hemostasis. No immediate complications were noted and patient was transferred to [facility] in a stable condition Conscious Sedation: Versed 0.5mg Fentanyl 25 micrograms Duration 16minutes HEMODYNAMICS: Aortic pressure is about 95/60. The end-diastolic pressure was about 5.. No gradient across the aortic valve SELECTIVE CORONARY ARTERIOGRAPHY: LEFT MAIN: Normal length and free of occlusive disease THE LEFT ANTERIOR DESCENDING CORONARY ARTERY: This is a good caliber vessel giving rise to good-sized first diagonal branch. The diagonal branch has mild diffuse disease. The stent in the mid LAD is patent. The rest of the LAD is free of any significant occlusive disease THE LEFT CIRCUMFLEX AND IS CORONARY ARTERY: This is a moderate caliber vessel and free of any significant occlusive disease THE RIGHT CORONARY ARTERY: This is a dominant vessel giving rise to PDA and PLV. There is a stent in the distal RCA which is patent. The vessel is ectatic with the risks and reasons in the distal portion and also in the beginning of the PLV branch. No change in anatomy compared to the previous studies LEFT VENTRICULOGRAPHY: not performed FINAL IMPRESSION: #1. Stable coronary artery disease with patent stent in the mid LAD and distal RCA. Rest of the anatomy is similar to the previous study PLAN: continuation medical therapy and this factor modification PROGNOSIS: Good
[2021-07-18 13:20] VITALS: BP 118/65; PULSE 70
== END 2021-07-18 13:29 | disposition home or self-care (01) ==
LOC: CATHCVL 06:08
PROVIDERS: ATTEND Internal Medicine Cardiovascular Disease
DX: I25.10 Atherosclerotic heart disease of native coronary artery without angina pectoris (principal); I10 Essential (primary) hypertension; E78.5 Hyperlipidemia, unspecified; Z95.5 Presence of coronary angioplasty implant and graft; Z20.822 Contact with and (suspected) exposure to COVID-19; Z82.49 Family history of ischemic heart disease and other diseases of the circulatory system; Z72.0 Tobacco use; D45 Polycythemia vera; Z79.82 Long term (current) use of aspirin; Z79.899 Other long term (current) drug therapy
CPT/HCPCS: 93458; 87635; C1760; C1894 ×2; C1769 ×2; J2250; J2001; J3010; Q9967

== ENCOUNTER → 2022-01-26 | Outpatient (CLI) | payer MEDICARE ==
--- NOTE | 2022-01-26 18:34 | CT ---
EXAMINATION TYPE: CT chest wo con CT DLP: 219 mGycm, Automated exposure control for dose reduction was used. DATE OF EXAM: 01/26/2022 5:07 PM COMPARISON: 12/16/2021. CLINICAL INDICATION:Male, 76 years old with history of 06.00 dyspnea, TECHNIQUE: Multiple axial images were obtained through the chest. Sagittal and coronal reformats were created for review. Contrast used: none. Oral contrast used: none. FINDINGS: LUNGS/ PLEURA: There is peripheral honeycombing with a basilar predominance. There is traction bronch iectasis with architectural distortion. Honeycombing is present. Multiple subpleural reticular opacit ies are present for airspace consolidation. No evidence for pneumothorax pleural effusion. There is t hickening of interlobular septa predominantly peripherally. AIRWAY: Bronchiectasis is present. HEART: Mild cardiomegaly with coronary artery atherosclerosis. MEDIASTINUM: No gross evidence of adenopathy. Small hiatal hernia is present. VASCULATURE: No aortic aneurysm. Atherosclerosis of the arterial vasculature. The pulmonary trunk is enlarged projected 3.5 cm. MUSCULOSKELETAL: No acute osseous abnormalities SOFT TISSUES/LYMPH NODES: Unremarkable. LOWER NECK: No significant findings. UPPER ABDOMEN: Right renal cysts. IMPRESSION: 1. 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 2. Mild cardiomegaly. 3. Pulmonary hypertension.
== END | disposition home or self-care (01) ==
LOC: RADCTMAIN 14:25
PROVIDERS: ATTEND Internal Medicine
DX: R06.00 Dyspnea, unspecified (principal)
CPT/HCPCS: 71250

== ENCOUNTER → 2022-03-30 | Outpatient (CLI) | payer MEDICARE ==
[2022-03-30 18:08] LABS: HCT 47.4 % (39.6-50.0); MCH 21.3 pg (27.0-32.0); MCHC 25.3 g/dL (32.0-37.0); Mean Platelet Volume 11.7 fL (9.5-12.2); NRBC Per 100 WBC 0.2 /100 WBCS (0.0-0.0); Platelet Count 750 X 10*3/uL (140-440); RBC 5.64 X 10*6/uL (4.40-5.60); RDW 20.6 % (11.5-14.5)
[2022-03-30 18:28] LABS: ALT 12 U/L (10-49); AST 25 U/L (14-35); Albumin 4.6 g/dL (3.8-4.9); Albumin/Globulin Ratio 1.64 (1.60-3.17); Alkaline Phosphatase 110 U/L (41-126); BUN/Creat Ratio 14.91 Ratio (12.00-20.00); Blood Urea Nitrogen 16.1 mg/dL (9.0-27.0); Calcium 9.5 mg/dL (8.7-10.3); Carbon Dioxide 27.4 mmol/L (20.0-27.5); Chloride 103 mmol/L (96-109); Globulin 2.8 g/dL (1.6-3.3); Glucose 104 mg/dL (70-110); Non-African American GFR(CKD) 67.3 (60.0-200.0); Potassium 4.6 mmol/L (3.5-5.5); Sodium 142 mmol/L (135-145); Total Protein 7.4 g/dL (6.2-8.2)
[2022-03-30 19:13] LABS: Anisocytosis (M) 2+; Basophils # (M) 0.49 X 10*3/uL (0.00-0.10); Elliptocytes 2+; Eosinophils # (M) 0.74 X 10*3/uL (0.04-0.35); Lymphocytes # (M) 0.98 X 10*3/uL (0.90-5.00); Microcytosis (M) 2+; Monocytes # (M) 0 X 10*3/uL (0.20-1.00); Myelocytes % 1 % (0-0); Neutrophils # (M) 22.14 X 10*3/uL (2.00-8.90); Neutrophils % (M) 90 %; Schistocytes 1+; Stomatocytes 2+
[2022-03-30 20:47] LABS: Erythrocyte Sedimentation Rate 10 mm/Hr (0-20)
[2022-03-31 17:31] LABS: Rheumatoid Factor, Qnt <10 IU/mL (0-15)
== END | disposition home or self-care (01) ==
LOC: LABWHC1 13:57
PROVIDERS: ATTEND Internal Medicine
DX: M33.10 Other dermatomyositis, organ involvement unspecified (principal)
CPT/HCPCS: 36415; 80053; 84439; 84443; 85025; 85652; 86038; 86235; 86431